=== PATIENT | male | born 1950 | race Caucasian/White ===

== ENCOUNTER 2018-03-14 08:53 | Inpatient (IN) ==
[2018-03-14] MEDS ORDERED: SODIUM CHLORIDE 0.9% 1,000 ML IV PRN (11:17)
[2018-03-14] MEDS ORDERED: FUROSEMIDE 40 MG TABLET PO PRN (11:19)
[2018-03-14] MEDS ORDERED: NITROGLYCERIN SL 0.4 MG TABLET SL PRN (11:19)
[2018-03-14] MEDS ORDERED: SODIUM CHLORIDE 0.45% 1,000 ML IV SCH (11:30)
[2018-03-14 11:45] LABS: Basophils % 0.3 % (0.0-0.8); Eosinophils # 0.2 10*3/uL (0.0-0.87); Eosinophils % 1.3 % (0.00-10.9); Hematocrit 19.4 VOL% (42.0-52.0); Immature Granulocytes % 0.7 %; Immature Granulocytes Absolute 0.09 #; Lymphocytes # 2.4 10*3/uL (1.4-4.0); Mean Corpuscular HGB Conc 30.4 GM/DL (32-36); Mean Corpuscular Hemoglobin 25 PG (27-34); Mean Corpuscular Volume 80.5 FL (87-102); Mean Platelet Volume 9.8 FL (9.6-12.0); Monocytes # 1.1 10*3/uL (0.11-0.8); Monocytes % 8.6 % (1.7-12.7); Neutrophils # 9.4 10*3/uL (1.4-7.4); Neutrophils % 71.1 % (38.7-73.9); Platelet Count 284 T/CUMM (130-400); Red Blood Count 2.41 MC/CUMM (3.8-5.5); Red Cell Distribution Width 14.5 % (9.3-17.3); White Blood Count 13.1 T/CUMM (4-12)
[2018-03-14 11:50] LABS: Hemoglobin 5.9 GM/DL (14.0-18.0)
[2018-03-14 12:01] LABS: INR 3.2
[2018-03-14 12:02] LABS: PT Patient Result 32.8 SECS
[2018-03-14 12:10] LABS: Alanine Aminotransferase 11 U/L (16-61); Albumin 3.1 G/DL (3.4-5.0); Alkaline Phosphatase 85 U/L (45-117); Aspartate Amino Transferase 9 U/L (0-37); Bilirubin,Total < 0.39 MG/DL (0.2-1.0); Blood Urea Nitrogen 23 MG/DL (7-18); Calcium 8.1 MG/DL (8.5-10.1); Glucose 141 MG/DL (74-106); Osmolality,Calculated 282.5 MOS/KG (273-304); Potassium 4.8 MMOL/L (3.5-5.1); Sodium 139 MMOL/L (136-145); Total Protein 6.7 G/DL (6.4-8.3)
[2018-03-14] MEDS ORDERED: MAGNESIUM SULF RIDER 2 GM in PREMIX 1 EACH IV PRN (13:15)
[2018-03-14] MEDS ORDERED: MAGNESIUM SULF RIDER 4 GM in PREMIX 1 EACH IV PRN (13:15)
[2018-03-14] MEDS ORDERED: metFORMIN 500 MG TABLET PO SCH (21:00)
[2018-03-14 21:34] LABS: Hematocrit 26.7 VOL% (42.0-52.0); Hemoglobin 8.4 GM/DL (14.0-18.0)
[2018-03-14] MEDS: ESCITALOPRAM 10 MG TABLET PO SCH (21:56)
[2018-03-14] MEDS: ROSUVASTATIN 20 MG TABLET PO SCH (21:56)
[2018-03-14] MEDS: levETIRAcetam 500 MG TABLET PO SCH (21:56)
[2018-03-14] MEDS: SOTALOL 80 MG TABLET PO SCH (21:56)
[2018-03-14] MEDS: ISOSORBIDE DINITRATE 20 MG TABLET PO SCH (21:56)
[2018-03-14] MEDS: ZALEPLON 5 MG CAPSULE PO SCH (21:56)
[2018-03-15 04:44] LABS: Basophils # 0.1 10*3/uL (0.0-0.2); Basophils % 0.6 % (0.0-0.8); Eosinophils # 0.2 10*3/uL (0.0-0.87); Eosinophils % 1.8 % (0.00-10.9); Immature Granulocytes % 0.4 %; Immature Granulocytes Absolute 0.06 #; Lymphocytes # 2.1 10*3/uL (1.4-4.0); Lymphocytes % 15.8 % (21.2-54.2); Mean Corpuscular HGB Conc 30.8 GM/DL (32-36); Mean Corpuscular Hemoglobin 26 PG (27-34); Mean Corpuscular Volume 82.8 FL (87-102); Mean Platelet Volume 9.7 FL (9.6-12.0); Monocytes # 1.2 10*3/uL (0.11-0.8); Monocytes % 8.9 % (1.7-12.7); Neutrophils # 9.8 10*3/uL (1.4-7.4); Neutrophils % 72.5 % (38.7-73.9); Platelet Count 251 T/CUMM (130-400); Red Blood Count 3.14 MC/CUMM (3.8-5.5); Red Cell Distribution Width 14.1 % (9.3-17.3); White Blood Count 13.5 T/CUMM (4-12)
[2018-03-15 05:00] LABS: INR 2.8
[2018-03-15 05:01] LABS: PT Patient Result 28.8 SECS
[2018-03-15 05:28] LABS: Bilirubin,Total 0.9 MG/DL (0.2-1.0); Calcium 8.2 MG/DL (8.5-10.1); Osmolality,Calculated 283.3 MOS/KG (273-304); Potassium 4.5 MMOL/L (3.5-5.1); Total Protein 6.6 G/DL (6.4-8.3)
[2018-03-15] MEDS: POTASSIUM CHLORIDE 20 MEQ TABLET PO SCH (08:52)
[2018-03-15] MEDS: DILTIAZEM CD 180 MG CAPSULE PO SCH (08:52)
[2018-03-15] MEDS: ISOSORBIDE DINITRATE 20 MG TABLET PO SCH ×2 (08:53→21:21)
[2018-03-15] MEDS: SOTALOL 80 MG TABLET PO SCH ×2 (08:54→21:21)
[2018-03-15] MEDS: CHOLECALCIFEROL 1,000 UNIT TABLET PO SCH (08:55)
[2018-03-15] MEDS: levETIRAcetam 500 MG TABLET PO SCH ×2 (08:56→21:20)
[2018-03-15] MEDS: ASCORBIC ACID 500 MG TABLET PO SCH (08:56)
[2018-03-15] MEDS: LISINOPRIL 10 MG TABLET PO SCH (08:56)
[2018-03-15] MEDS ORDERED: FUROSEMIDE 20 MG/2 ML VIAL IV PRN (11:47)
[2018-03-15] MEDS ORDERED: SODIUM CHLORIDE 0.9% 1,000 ML IV PRN ×2 (11:47→13:07)
[2018-03-15] MEDS: INSULIN LISPRO 100 UNIT/ML SUBCUT SCH ×3 (12:06→22:58)
[2018-03-15] MEDS ORDERED: DIGOXIN 0.25 MG TABLET PO SCH (13:00)
[2018-03-15] MEDS: GLIMEPIRIDE 2 MG TABLET PO SCH (13:21)
[2018-03-15] MEDS: ZALEPLON 5 MG CAPSULE PO SCH (21:20)
[2018-03-15] MEDS: ROSUVASTATIN 20 MG TABLET PO SCH (21:20)
[2018-03-15] MEDS: ESCITALOPRAM 10 MG TABLET PO SCH (21:22)
[2018-03-16 04:15] LABS: Basophils # 0.1 10*3/uL (0.0-0.2); Basophils % 0.6 % (0.0-0.8); Eosinophils # 0.3 10*3/uL (0.0-0.87); Eosinophils % 2.1 % (0.00-10.9); Hematocrit 31.2 VOL% (42.0-52.0); Hemoglobin 9.6 GM/DL (14.0-18.0); Immature Granulocytes % 0.4 %; Immature Granulocytes Absolute 0.05 #; Lymphocytes # 2.1 10*3/uL (1.4-4.0); Lymphocytes % 18.2 % (21.2-54.2); Mean Corpuscular HGB Conc 30.8 GM/DL (32-36); Mean Corpuscular Hemoglobin 25 PG (27-34); Mean Corpuscular Volume 82.3 FL (87-102); Mean Platelet Volume 10.1 FL (9.6-12.0); Monocytes # 1.2 10*3/uL (0.11-0.8); Neutrophils # 8.1 10*3/uL (1.4-7.4); Neutrophils % 68.7 % (38.7-73.9); Platelet Count 268 T/CUMM (130-400); Red Blood Count 3.79 MC/CUMM (3.8-5.5); Red Cell Distribution Width 14.7 % (9.3-17.3); White Blood Count 11.7 T/CUMM (4-12)
[2018-03-16 04:30] LABS: INR 2.4
[2018-03-16 04:32] LABS: PT Patient Result 24.4 SECS
[2018-03-16 04:41] LABS: Bilirubin,Total 0.8 MG/DL (0.2-1.0); Calcium 8.2 MG/DL (8.5-10.1); Osmolality,Calculated 283.3 MOS/KG (273-304); Potassium 4.3 MMOL/L (3.5-5.1); Total Protein 6.7 G/DL (6.4-8.3)
[2018-03-16] MEDS ORDERED: DIGOXIN 0.25 MG TABLET PO SCH (08:00)
[2018-03-16 08:14] VITALS: BP 136/70
[2018-03-16] MEDS: INSULIN LISPRO 100 UNIT/ML SUBCUT SCH (08:31)
[2018-03-16] MEDS: ASCORBIC ACID 500 MG TABLET PO SCH (08:55)
[2018-03-16] MEDS: ISOSORBIDE DINITRATE 20 MG TABLET PO SCH (08:55)
[2018-03-16] MEDS: DILTIAZEM CD 180 MG CAPSULE PO SCH (08:55)
[2018-03-16] MEDS: LISINOPRIL 10 MG TABLET PO SCH (08:55)
[2018-03-16] MEDS: levETIRAcetam 500 MG TABLET PO SCH (08:55)
[2018-03-16] MEDS: SOTALOL 80 MG TABLET PO SCH (08:55)
[2018-03-16] MEDS: GLIMEPIRIDE 2 MG TABLET PO SCH (08:56)
[2018-03-16] MEDS: POTASSIUM CHLORIDE 20 MEQ TABLET PO SCH (08:56)
[2018-03-16] MEDS: CHOLECALCIFEROL 1,000 UNIT TABLET PO SCH (08:56)
[2018-03-17] MEDS ORDERED: DIGOXIN 0.25 MG TABLET PO SCH (08:00)
== END 2018-03-16 10:59 | disposition home or self-care, planned readmission (81) | DRG 687 ==
LOC: N.2W 10:21 → N.TELES 15:07
PROVIDERS: ADMIT Internal Medicine; ATTEND Internal Medicine

== ENCOUNTER 2018-03-21 07:00 | Inpatient (IN) ==
[2018-03-21] MEDS ORDERED: LACTULOSE 20 GM/30 ML UDCUP PO PRN (12:21)
[2018-03-21] MEDS ORDERED: ONDANSETRON 4 MG/2 ML VIAL IV PRN (12:21)
[2018-03-21] MEDS ORDERED: ACETAMINOPHEN 325 MG TABLET PO PRN (12:21)
[2018-03-21] MEDS ORDERED: DOCUSATE SODIUM 100 MG CAPSULE PO PRN (12:21)
[2018-03-21 13:31] LABS: Basophils # 0.1 10*3/uL (0.0-0.2); Basophils % 0.6 % (0.0-0.8); Eosinophils # 0.5 10*3/uL (0.0-0.87); Eosinophils % 2.8 % (0.00-10.9); Hematocrit 34.6 VOL% (42.0-52.0); Hemoglobin 10.2 GM/DL (14.0-18.0); Immature Granulocytes % 0.5 %; Immature Granulocytes Absolute 0.09 #; Lymphocytes # 2.3 10*3/uL (1.4-4.0); Lymphocytes % 13.9 % (21.2-54.2); Mean Corpuscular HGB Conc 29.5 GM/DL (32-36); Mean Corpuscular Hemoglobin 25 PG (27-34); Mean Corpuscular Volume 84.8 FL (87-102); Mean Platelet Volume 9.6 FL (9.6-12.0); Monocytes # 1.2 10*3/uL (0.11-0.8); Neutrophils # 12.5 10*3/uL (1.4-7.4); Neutrophils % 75.2 % (38.7-73.9); Platelet Count 318 T/CUMM (130-400); Red Blood Count 4.08 MC/CUMM (3.8-5.5); Red Cell Distribution Width 14.8 % (9.3-17.3); White Blood Count 16.6 T/CUMM (4-12)
[2018-03-21 14:03] LABS: Albumin 3.4 G/DL (3.4-5.0); Bilirubin,Total 0.4 MG/DL (0.2-1.0); Calcium 8.9 MG/DL (8.5-10.1); Osmolality,Calculated 280.4 MOS/KG (273-304); Potassium 4.1 MMOL/L (3.5-5.1); Thyroid Stimulating Hormone 2.22 uIU/ml (0.358-3.74); Total Protein 7.6 G/DL (6.4-8.3)
[2018-03-21] MEDS: PANTOPRAZOLE 40 MG TABLET PO SCH (14:17)
[2018-03-21] MEDS: SODIUM CHLORIDE 0.9% 1,000 ML IV SCH (14:17)
[2018-03-21] MEDS ORDERED: FUROSEMIDE 40 MG TABLET PO PRN (16:09)
[2018-03-21 16:46] LABS: Apearance,Urine CLOUDY (Clear); Bilirubin,Urine Negative (Negative); Blood, Urine Moderate mg/dL (Negative); Glucose,Urine (UA) Negative (Negative); Ketones,Urine 5 mg/dL (Negative); Nitrite,Urine Negative (Negative); Protein,Urine 100 MG/DL; RBC,Urine 23912 /HPF (0-4); Squamous Epithelial Cell,Urine Occasional /HPF (0-10); Urine Specific Gravity 1.012 (1.001-1.035); Urine Urobilinogen < 2.0 EU/DL (0.2-1.0)
[2018-03-21 16:53] LABS: Urine Color Brown (Yellow); WBC,Urine 2 /HPF (0-6)
[2018-03-21] MEDS: cefTRIAXone 1,000 MG in SYRINGE 1 EACH IV SCH (17:54)
[2018-03-21] MEDS: SOTALOL 80 MG TABLET PO SCH (20:49)
[2018-03-21] MEDS: levETIRAcetam 500 MG TABLET PO SCH (20:49)
[2018-03-21] MEDS: ESCITALOPRAM 10 MG TABLET PO SCH (20:49)
[2018-03-21] MEDS: ISOSORBIDE DINITRATE 20 MG TABLET PO SCH (20:49)
[2018-03-21] MEDS: ROSUVASTATIN 20 MG TABLET PO SCH (20:49)
[2018-03-22 04:55] LABS: Basophils # 0.1 10*3/uL (0.0-0.2); Basophils % 0.8 % (0.0-0.8); Eosinophils # 0.4 10*3/uL (0.0-0.87); Eosinophils % 2.9 % (0.00-10.9); Hematocrit 31.3 VOL% (42.0-52.0); Hemoglobin 9.4 GM/DL (14.0-18.0); Immature Granulocytes % 0.7 %; Immature Granulocytes Absolute 0.09 #; Lymphocytes # 2.4 10*3/uL (1.4-4.0); Lymphocytes % 18.9 % (21.2-54.2); Mean Corpuscular Hemoglobin 26 PG (27-34); Mean Corpuscular Volume 84.8 FL (87-102); Mean Platelet Volume 9.6 FL (9.6-12.0); Monocytes % 8.3 % (1.7-12.7); Neutrophils # 8.6 10*3/uL (1.4-7.4); Neutrophils % 68.4 % (38.7-73.9); Platelet Count 283 T/CUMM (130-400); Red Blood Count 3.69 MC/CUMM (3.8-5.5); Red Cell Distribution Width 14.8 % (9.3-17.3); White Blood Count 12.5 T/CUMM (4-12)
[2018-03-22 05:29] LABS: Calcium 8.4 MG/DL (8.5-10.1); Osmolality,Calculated 287.7 MOS/KG (273-304); Potassium 4.8 MMOL/L (3.5-5.1); Risk Ratio 3.65; VLDL CHOLESTEROL 25.8 MG/DL
[2018-03-22] MEDS: SODIUM CHLORIDE 0.9% 1,000 ML IV SCH (07:45)
[2018-03-22] MEDS: ISOSORBIDE DINITRATE 20 MG TABLET PO SCH ×2 (09:00→21:52)
[2018-03-22] MEDS: DILTIAZEM CD 180 MG CAPSULE PO SCH (09:01)
[2018-03-22] MEDS: SOTALOL 80 MG TABLET PO SCH ×2 (09:01→21:53)
[2018-03-22] MEDS: GLIMEPIRIDE 2 MG TABLET PO SCH (09:01)
[2018-03-22] MEDS: PANTOPRAZOLE 40 MG TABLET PO SCH (09:01)
[2018-03-22] MEDS: DIGOXIN 0.25 MG TABLET PO SCH (09:01)
[2018-03-22] MEDS: LISINOPRIL 10 MG TABLET PO SCH (09:02)
[2018-03-22] MEDS: levETIRAcetam 500 MG TABLET PO SCH ×2 (09:02→21:53)
[2018-03-22] MEDS ORDERED: diphenhydrAMINE 50 MG/1 ML VIAL IV PRN (15:29)
[2018-03-22] MEDS ORDERED: SODIUM CHLORIDE 0.9% 1,000 ML IV PRN (15:29)
[2018-03-22] MEDS: ESCITALOPRAM 10 MG TABLET PO SCH (21:53)
[2018-03-22] MEDS: cefTRIAXone 1,000 MG in SYRINGE 1 EACH IV SCH (21:53)
[2018-03-22] MEDS: ROSUVASTATIN 20 MG TABLET PO SCH (21:53)
[2018-03-22] MEDS: ZOLPIDEM 5 MG TABLET PO PRN (21:53)
[2018-03-22 21:55] LABS: PT Patient Result 10.9 SECS; Partial Thromboplastin Time 27.1 SECS (0-40)
[2018-03-23 04:55] LABS: Basophils # 0.1 10*3/uL (0.0-0.2); Basophils % 0.7 % (0.0-0.8); Eosinophils # 0.4 10*3/uL (0.0-0.87); Eosinophils % 2.9 % (0.00-10.9); Hemoglobin 10.5 GM/DL (14.0-18.0); Immature Granulocytes % 0.7 %; Immature Granulocytes Absolute 0.09 #; Lymphocytes # 2.2 10*3/uL (1.4-4.0); Lymphocytes % 17.5 % (21.2-54.2); Mean Corpuscular HGB Conc 30.9 GM/DL (32-36); Mean Corpuscular Hemoglobin 26 PG (27-34); Mean Corpuscular Volume 84.8 FL (87-102); Mean Platelet Volume 9.5 FL (9.6-12.0); Monocytes # 0.9 10*3/uL (0.11-0.8); Monocytes % 7.6 % (1.7-12.7); Neutrophils # 8.7 10*3/uL (1.4-7.4); Neutrophils % 70.6 % (38.7-73.9); Platelet Count 268 T/CUMM (130-400); Red Blood Count 4.01 MC/CUMM (3.8-5.5); Red Cell Distribution Width 14.6 % (9.3-17.3); White Blood Count 12.3 T/CUMM (4-12)
[2018-03-23 05:31] LABS: Albumin 3.2 G/DL (3.4-5.0); Bilirubin,Total 1.3 MG/DL (0.2-1.0); Calcium 8.8 MG/DL (8.5-10.1); Osmolality,Calculated 283.1 MOS/KG (273-304); Potassium 4.1 MMOL/L (3.5-5.1); Total Protein 7.1 G/DL (6.4-8.3)
[2018-03-23] MEDS: SOTALOL 80 MG TABLET PO SCH ×3 (06:34→20:18)
[2018-03-23] MEDS: levETIRAcetam 500 MG TABLET PO SCH ×3 (06:34→20:18)
[2018-03-23] MEDS: LISINOPRIL 10 MG TABLET PO SCH ×2 (06:35→13:56)
[2018-03-23] MEDS: DILTIAZEM CD 180 MG CAPSULE PO SCH ×2 (06:35→13:56)
[2018-03-23] MEDS: PANTOPRAZOLE 40 MG TABLET PO SCH ×2 (06:36→13:57)
[2018-03-23] MEDS: ISOSORBIDE DINITRATE 20 MG TABLET PO SCH ×3 (06:36→20:19)
[2018-03-23] MEDS ORDERED: ETOMIDATE 40 MG/20 ML VIAL IV ONE (06:41)
[2018-03-23] MEDS ORDERED: PHENYLEPHRINE DRIP 20 MG/250 ML PREMIX IV ONE (06:41)
[2018-03-23] MEDS ORDERED: HEPARIN/NACL 0.9% 2 UNITS/ML 500 ML IV ONE (06:41)
[2018-03-23] MEDS ORDERED: cefTRIAXone 1,000 MG VIAL ONE (08:30)
[2018-03-23] MEDS ORDERED: DEXAMETHASONE 10 MG/1 ML VIAL ONE (08:30)
[2018-03-23] MEDS ORDERED: BUPIVACAINE MPF 0.25% /EPI 30 ML VIAL ONE (10:59)
[2018-03-23 13:34] LABS: Basophils # 0.1 10*3/uL (0.0-0.2); Basophils % 0.5 % (0.0-0.8); Eosinophils # 0.1 10*3/uL (0.0-0.87); Eosinophils % 0.6 % (0.00-10.9); Hematocrit 34.2 VOL% (42.0-52.0); Hemoglobin 10.3 GM/DL (14.0-18.0); Immature Granulocytes % 0.6 %; Immature Granulocytes Absolute 0.15 #; Lymphocytes # 1.3 10*3/uL (1.4-4.0); Lymphocytes % 5.4 % (21.2-54.2); Mean Corpuscular HGB Conc 30.1 GM/DL (32-36); Mean Corpuscular Hemoglobin 26 PG (27-34); Mean Corpuscular Volume 86.8 FL (87-102); Mean Platelet Volume 9.3 FL (9.6-12.0); Monocytes # 1.5 10*3/uL (0.11-0.8); Monocytes % 6.3 % (1.7-12.7); Neutrophils # 20.2 10*3/uL (1.4-7.4); Neutrophils % 86.6 % (38.7-73.9); Platelet Count 289 T/CUMM (130-400); Red Blood Count 3.94 MC/CUMM (3.8-5.5); Red Cell Distribution Width 14.7 % (9.3-17.3); White Blood Count 23.3 T/CUMM (4-12)
[2018-03-23] MEDS ORDERED: SEVOFLURANE 1 UNIT/15 MINUTE INH ONE (13:39)
[2018-03-23] MEDS ORDERED: MIDAZOLAM 2 MG/2 ML VIAL ONE (13:40)
[2018-03-23] MEDS ORDERED: GLYCOPYRROLATE 0.4 MG/2 ML VIAL ONE (13:40)
[2018-03-23] MEDS ORDERED: ONDANSETRON 4 MG/2 ML VIAL ONE (13:40)
[2018-03-23] MEDS ORDERED: SODIUM CHLORIDE 0.9% 1,000 ML IV ONE (13:41)
[2018-03-23] MEDS ORDERED: LACTATED RINGERS 1,000 ML IV ONE (13:41)
[2018-03-23] MEDS ORDERED: NEOSTIGMINE 10 MG/10 ML VIAL ONE (13:41)
[2018-03-23] MEDS ORDERED: ROCURONIUM 100 MG/10 ML VIAL IV ONE (13:41)
[2018-03-23 13:55] LABS: Apearance,Urine CLOUDY (Clear); Bilirubin,Urine Negative (Negative); Blood, Urine Moderate mg/dL (Negative); Glucose,Urine (UA) Negative (Negative); Ketones,Urine Negative (Negative); Nitrite,Urine Negative (Negative); Protein,Urine 100 MG/DL; RBC,Urine 6185 /HPF (0-4); Urine Color Red (Yellow); Urine Specific Gravity 1.008 (1.001-1.035); Urine Urobilinogen < 2.0 EU/DL (0.2-1.0); WBC,Urine 120 /HPF (0-6)
[2018-03-23] MEDS: GLIMEPIRIDE 2 MG TABLET PO SCH (13:55)
[2018-03-23 14:03] LABS: Calcium 7.7 MG/DL (8.5-10.1); Osmolality,Calculated 285.1 MOS/KG (273-304); Potassium 5.6 MMOL/L (3.5-5.1)
[2018-03-23 15:59] LABS: Eosinophils 1 % (0-10); Hypochromasia 1+; Lymphocytes 6 % (20-55); Microcytosis 1+; Platelet Estimate Adequate; Segmented Neutrophils 92 % (50-85); Total Cells Counted 100
[2018-03-23] MEDS: SODIUM CHLORIDE 0.9% 1,000 ML IV SCH (16:20)
[2018-03-23] MEDS: cefTRIAXone 1,000 MG in SYRINGE 1 EACH IV SCH (17:25)
[2018-03-23] MEDS: ROSUVASTATIN 20 MG TABLET PO SCH (20:18)
[2018-03-23] MEDS: ESCITALOPRAM 10 MG TABLET PO SCH (20:18)
[2018-03-23] MEDS: cloNIDine 0.1 MG TABLET PO PRN (20:19)
[2018-03-24] MEDS: ZOLPIDEM 5 MG TABLET PO PRN ×2 (02:19→23:01)
[2018-03-24 03:35] LABS: Basophils # 0.1 10*3/uL (0.0-0.2); Basophils % 0.4 % (0.0-0.8); Eosinophils % 0.1 % (0.00-10.9); Hematocrit 32.7 VOL% (42.0-52.0); Hemoglobin 9.8 GM/DL (14.0-18.0); Immature Granulocytes Absolute 0.25 #; Lymphocytes # 1.5 10*3/uL (1.4-4.0); Mean Corpuscular Hemoglobin 26 PG (27-34); Mean Corpuscular Volume 86.3 FL (87-102); Mean Platelet Volume 10.9 FL (9.6-12.0); Monocytes # 1.7 10*3/uL (0.11-0.8); Monocytes % 6.6 % (1.7-12.7); Neutrophils % 85.9 % (38.7-73.9); Platelet Count 149 T/CUMM (130-400); Red Blood Count 3.79 MC/CUMM (3.8-5.5); White Blood Count 25.6 T/CUMM (4-12)
[2018-03-24 04:00] LABS: Calcium 7.8 MG/DL (8.5-10.1); Potassium 4.7 MMOL/L (3.5-5.1)
[2018-03-24 04:12] LABS: Band Neutrophils 4 % (0-10); Lymphocytes 10 % (20-55); Segmented Neutrophils 82 % (50-85); Total Cells Counted 100
[2018-03-24 04:13] LABS: Platelet Estimate Normal
[2018-03-24] MEDS: SODIUM CHLORIDE 0.9% 1,000 ML IV SCH ×5 (04:26→22:13)
[2018-03-24] MEDS: levETIRAcetam 500 MG TABLET PO SCH ×2 (08:37→22:02)
[2018-03-24] MEDS: SOTALOL 80 MG TABLET PO SCH ×2 (08:37→22:01)
[2018-03-24] MEDS: GLIMEPIRIDE 2 MG TABLET PO SCH (08:37)
[2018-03-24] MEDS: DILTIAZEM CD 180 MG CAPSULE PO SCH (08:37)
[2018-03-24] MEDS: ISOSORBIDE DINITRATE 20 MG TABLET PO SCH ×2 (08:38→22:02)
[2018-03-24] MEDS: PANTOPRAZOLE 40 MG TABLET PO SCH (08:38)
[2018-03-24] MEDS: DIGOXIN 0.25 MG TABLET PO SCH (08:38)
[2018-03-24] MEDS: PIPERACILLIN/TAZOBACTAM 3,375 MG in SODIUM CHLORIDE 0.9% 100 ML IV SCH ×2 (08:45→17:00)
[2018-03-24] MEDS ORDERED: MAGNESIUM SULF RIDER 4 GM in PREMIX 1 EACH IV PRN (08:58)
[2018-03-24] MEDS: MAGNESIUM SULF RIDER 2 GM in PREMIX 1 EACH IV PRN (09:47)
[2018-03-24] MEDS ORDERED: CALCIUM GLUCONATE 2,000 MG in SODIUM CHLORIDE 0.9% 100 ML IV ONE (10:00)
[2018-03-24] MEDS: cloNIDine 0.1 MG TABLET PO PRN (10:40)
[2018-03-24] MEDS: ACETAMINOPHEN 325 MG TABLET PO SCH ×3 (11:21→23:01)
[2018-03-24] MEDS: ESCITALOPRAM 10 MG TABLET PO SCH (22:02)
[2018-03-24] MEDS: ROSUVASTATIN 20 MG TABLET PO SCH (22:03)
[2018-03-24] MEDS ORDERED: HEPARIN/NACL 0.9% 2 UNITS/ML 500 ML IV ONE (22:25)
[2018-03-25] MEDS ORDERED: SODIUM CHLORIDE 0.9% 500 ML IV ONE (01:25)
[2018-03-25] MEDS: PIPERACILLIN/TAZOBACTAM 3,375 MG in SODIUM CHLORIDE 0.9% 100 ML IV SCH ×3 (01:29→17:15)
[2018-03-25] MEDS: SODIUM CHLORIDE 0.9% 1,000 ML IV SCH ×5 (01:30→20:16)
[2018-03-25] MEDS ORDERED: PHENYLEPHRINE DRIP 40 MG/250 ML PREMIX IV PRN (02:08)
[2018-03-25 05:03] LABS: Basophils # 0.1 10*3/uL (0.0-0.2); Basophils % 0.4 % (0.0-0.8); Eosinophils # 0.2 10*3/uL (0.0-0.87); Hemoglobin 8.9 GM/DL (14.0-18.0); Immature Granulocytes % 0.9 %; Immature Granulocytes Absolute 0.16 #; Lymphocytes # 1.5 10*3/uL (1.4-4.0); Lymphocytes % 8.2 % (21.2-54.2); Mean Corpuscular HGB Conc 29.7 GM/DL (32-36); Mean Corpuscular Hemoglobin 26 PG (27-34); Mean Platelet Volume 9.9 FL (9.6-12.0); Monocytes # 1.3 10*3/uL (0.11-0.8); Monocytes % 6.8 % (1.7-12.7); Neutrophils # 15.5 10*3/uL (1.4-7.4); Neutrophils % 82.7 % (38.7-73.9); Platelet Count 223 T/CUMM (130-400); Red Blood Count 3.45 MC/CUMM (3.8-5.5); Red Cell Distribution Width 15.2 % (9.3-17.3); White Blood Count 18.7 T/CUMM (4-12)
[2018-03-25 05:10] LABS: Calcium 7.9 MG/DL (8.5-10.1); Osmolality,Calculated 290.8 MOS/KG (273-304); Potassium 4.3 MMOL/L (3.5-5.1)
[2018-03-25] MEDS: ACETAMINOPHEN 325 MG TABLET PO SCH ×4 (05:57→23:29)
[2018-03-25] MEDS ORDERED: SODIUM CHLORIDE 0.9% 1,000 ML IV PRN ×2 (08:13→09:41)
[2018-03-25] MEDS: ISOSORBIDE DINITRATE 20 MG TABLET PO SCH ×2 (10:08→20:56)
[2018-03-25] MEDS: PANTOPRAZOLE 40 MG TABLET PO SCH (10:10)
[2018-03-25] MEDS: SOTALOL 80 MG TABLET PO SCH ×2 (10:11→20:56)
[2018-03-25] MEDS: DILTIAZEM CD 180 MG CAPSULE PO SCH (10:11)
[2018-03-25] MEDS: levETIRAcetam 500 MG TABLET PO SCH ×2 (10:15→20:56)
[2018-03-25] MEDS: ALBUTEROL/IPRATROPIUM 3 ML NEB RESP TX PRN ×2 (10:33→15:34)
[2018-03-25] MEDS ORDERED: FUROSEMIDE 40 MG/4 ML VIAL IV ONE (16:14)
[2018-03-25] MEDS: ESCITALOPRAM 10 MG TABLET PO SCH (20:57)
[2018-03-25] MEDS: ROSUVASTATIN 20 MG TABLET PO SCH (20:57)
[2018-03-25] MEDS: ZOLPIDEM 5 MG TABLET PO PRN (23:28)
[2018-03-26] MEDS: SODIUM CHLORIDE 0.9% 1,000 ML IV SCH ×5 (01:08→21:30)
[2018-03-26] MEDS: PIPERACILLIN/TAZOBACTAM 3,375 MG in SODIUM CHLORIDE 0.9% 100 ML IV SCH ×3 (01:14→16:37)
[2018-03-26] MEDS: ALBUTEROL/IPRATROPIUM 3 ML NEB RESP TX PRN (01:26)
[2018-03-26 04:50] LABS: Basophils # 0.1 10*3/uL (0.0-0.2); Basophils % 0.6 % (0.0-0.8); Eosinophils # 0.3 10*3/uL (0.0-0.87); Eosinophils % 2.2 % (0.00-10.9); Hematocrit 34.6 VOL% (42.0-52.0); Hemoglobin 10.7 GM/DL (14.0-18.0); Immature Granulocytes % 0.7 %; Lymphocytes # 1.4 10*3/uL (1.4-4.0); Lymphocytes % 10.3 % (21.2-54.2); Mean Corpuscular HGB Conc 30.9 GM/DL (32-36); Mean Corpuscular Hemoglobin 26 PG (27-34); Mean Platelet Volume 10.1 FL (9.6-12.0); Neutrophils # 11.1 10*3/uL (1.4-7.4); Neutrophils % 79.2 % (38.7-73.9); Platelet Count 207 T/CUMM (130-400); Red Blood Count 4.07 MC/CUMM (3.8-5.5); Red Cell Distribution Width 14.7 % (9.3-17.3)
[2018-03-26] MEDS: ACETAMINOPHEN 325 MG TABLET PO SCH ×4 (05:43→22:02)
[2018-03-26] MEDS: DILTIAZEM CD 180 MG CAPSULE PO SCH (09:39)
[2018-03-26] MEDS: PANTOPRAZOLE 40 MG TABLET PO SCH (09:40)
[2018-03-26] MEDS: levETIRAcetam 500 MG TABLET PO SCH ×2 (09:40→22:02)
[2018-03-26] MEDS: ISOSORBIDE DINITRATE 20 MG TABLET PO SCH ×2 (09:42→22:02)
[2018-03-26] MEDS: SOTALOL 80 MG TABLET PO SCH ×2 (09:42→22:04)
[2018-03-26] MEDS: FUROSEMIDE 40 MG TABLET PO SCH (16:35)
[2018-03-26] MEDS: ESCITALOPRAM 10 MG TABLET PO SCH (22:03)
[2018-03-26] MEDS: ROSUVASTATIN 20 MG TABLET PO SCH (22:03)
[2018-03-27] MEDS: PIPERACILLIN/TAZOBACTAM 3,375 MG in SODIUM CHLORIDE 0.9% 100 ML IV SCH ×3 (00:41→17:33)
[2018-03-27 04:52] LABS: Basophils # 0.1 10*3/uL (0.0-0.2); Basophils % 0.6 % (0.0-0.8); Eosinophils # 0.4 10*3/uL (0.0-0.87); Eosinophils % 3.6 % (0.00-10.9); Hematocrit 35.7 VOL% (42.0-52.0); Immature Granulocytes % 0.6 %; Immature Granulocytes Absolute 0.07 #; Lymphocytes # 1.3 10*3/uL (1.4-4.0); Lymphocytes % 11.6 % (21.2-54.2); Mean Corpuscular HGB Conc 30.8 GM/DL (32-36); Mean Corpuscular Hemoglobin 26 PG (27-34); Mean Platelet Volume 9.9 FL (9.6-12.0); Monocytes # 0.8 10*3/uL (0.11-0.8); Monocytes % 6.7 % (1.7-12.7); Neutrophils # 8.8 10*3/uL (1.4-7.4); Neutrophils % 76.9 % (38.7-73.9); Platelet Count 235 T/CUMM (130-400); Red Blood Count 4.25 MC/CUMM (3.8-5.5); Red Cell Distribution Width 14.6 % (9.3-17.3); White Blood Count 11.5 T/CUMM (4-12)
[2018-03-27 05:18] LABS: Calcium 7.7 MG/DL (8.5-10.1); Osmolality,Calculated 281.1 MOS/KG (273-304); Potassium 3.7 MMOL/L (3.5-5.1)
[2018-03-27] MEDS: SODIUM CHLORIDE 0.9% 1,000 ML IV SCH (05:52)
[2018-03-27] MEDS: ACETAMINOPHEN 325 MG TABLET PO SCH ×4 (05:53→23:45)
[2018-03-27] MEDS: DIGOXIN 0.25 MG TABLET PO SCH (08:43)
[2018-03-27] MEDS: FUROSEMIDE 40 MG TABLET PO SCH (08:43)
[2018-03-27] MEDS: PANTOPRAZOLE 40 MG TABLET PO SCH (08:43)
[2018-03-27] MEDS: ISOSORBIDE DINITRATE 20 MG TABLET PO SCH ×2 (08:43→21:48)
[2018-03-27] MEDS: ASPIRIN EC 81 MG TABLET PO SCH (08:44)
[2018-03-27] MEDS: SOTALOL 80 MG TABLET PO SCH ×2 (08:44→21:48)
[2018-03-27] MEDS: levETIRAcetam 500 MG TABLET PO SCH ×2 (08:44→21:49)
[2018-03-27] MEDS: DILTIAZEM CD 180 MG CAPSULE PO SCH (08:44)
[2018-03-27] MEDS ORDERED: DILTIAZEM CD 120 MG CAPSULE PO ONE (10:51)
[2018-03-27] MEDS ORDERED: POTASSIUM CHLORIDE 20 MEQ TABLET PO ONE (10:53)
[2018-03-27] MEDS: ESCITALOPRAM 10 MG TABLET PO SCH (21:48)
[2018-03-27] MEDS: ROSUVASTATIN 20 MG TABLET PO SCH (21:49)
[2018-03-28] MEDS: ACETAMINOPHEN 325 MG TABLET PO SCH ×3 (06:04→17:53)
[2018-03-28 06:25] LABS: Basophils # 0.1 10*3/uL (0.0-0.2); Basophils % 0.8 % (0.0-0.8); Eosinophils # 0.5 10*3/uL (0.0-0.87); Eosinophils % 4.4 % (0.00-10.9); Hematocrit 37.8 VOL% (42.0-52.0); Immature Granulocytes % 0.8 %; Immature Granulocytes Absolute 0.08 #; Lymphocytes # 1.6 10*3/uL (1.4-4.0); Lymphocytes % 15.3 % (21.2-54.2); Mean Corpuscular HGB Conc 31.7 GM/DL (32-36); Mean Corpuscular Hemoglobin 26 PG (27-34); Mean Corpuscular Volume 83.1 FL (87-102); Mean Platelet Volume 9.7 FL (9.6-12.0); Monocytes # 0.8 10*3/uL (0.11-0.8); Monocytes % 7.7 % (1.7-12.7); Neutrophils # 7.2 10*3/uL (1.4-7.4); Platelet Count 257 T/CUMM (130-400); Red Blood Count 4.55 MC/CUMM (3.8-5.5); Red Cell Distribution Width 14.1 % (9.3-17.3); White Blood Count 10.2 T/CUMM (4-12)
[2018-03-28 06:43] LABS: Calcium 8.4 MG/DL (8.5-10.1); Osmolality,Calculated 280.1 MOS/KG (273-304); Potassium 3.3 MMOL/L (3.5-5.1)
[2018-03-28] MEDS ORDERED: POTASSIUM CHLORIDE 20 MEQ TABLET PO ONE (06:59)
[2018-03-28] MEDS ORDERED: MAGNESIUM SULF RIDER 4 GM in PREMIX 1 EACH IV PRN (06:59)
[2018-03-28] MEDS ORDERED: MAGNESIUM SULF RIDER 2 GM in PREMIX 1 EACH IV PRN (06:59)
[2018-03-28] MEDS: GLIMEPIRIDE 2 MG TABLET PO SCH (10:06)
[2018-03-28] MEDS: DILTIAZEM CD 240 MG CAPSULE PO SCH (10:06)
[2018-03-28] MEDS: levETIRAcetam 500 MG TABLET PO SCH ×2 (10:06→21:42)
[2018-03-28] MEDS: SOTALOL 80 MG TABLET PO SCH ×2 (10:06→21:42)
[2018-03-28] MEDS: PANTOPRAZOLE 40 MG TABLET PO SCH (10:06)
[2018-03-28] MEDS: ISOSORBIDE DINITRATE 20 MG TABLET PO SCH ×2 (10:06→21:42)
[2018-03-28] MEDS: FUROSEMIDE 40 MG TABLET PO SCH (10:06)
[2018-03-28] MEDS: ASPIRIN EC 81 MG TABLET PO SCH (10:06)
[2018-03-28] MEDS: MAGNESIUM SULF RIDER 2 GM in PREMIX 1 EACH IV PRN (10:07)
[2018-03-28] MEDS: ROSUVASTATIN 20 MG TABLET PO SCH (21:41)
[2018-03-28] MEDS: ESCITALOPRAM 10 MG TABLET PO SCH (21:42)
[2018-03-29] MEDS: ACETAMINOPHEN 325 MG TABLET PO SCH ×3 (00:05→11:30)
[2018-03-29 06:38] LABS: Basophils # 0.1 10*3/uL (0.0-0.2); Basophils % 0.7 % (0.0-0.8); Eosinophils # 0.5 10*3/uL (0.0-0.87); Eosinophils % 4.8 % (0.00-10.9); Hematocrit 38.9 VOL% (42.0-52.0); Hemoglobin 12.1 GM/DL (14.0-18.0); Immature Granulocytes % 0.9 %; Immature Granulocytes Absolute 0.09 #; Lymphocytes # 1.8 10*3/uL (1.4-4.0); Lymphocytes % 17.9 % (21.2-54.2); Mean Corpuscular HGB Conc 31.1 GM/DL (32-36); Mean Corpuscular Hemoglobin 26 PG (27-34); Mean Corpuscular Volume 82.8 FL (87-102); Mean Platelet Volume 9.9 FL (9.6-12.0); Monocytes # 0.8 10*3/uL (0.11-0.8); Monocytes % 7.9 % (1.7-12.7); Neutrophils # 6.7 10*3/uL (1.4-7.4); Neutrophils % 67.8 % (38.7-73.9); Platelet Count 278 T/CUMM (130-400); Red Cell Distribution Width 14.3 % (9.3-17.3); White Blood Count 9.8 T/CUMM (4-12)
[2018-03-29 07:10] LABS: Calcium 8.6 MG/DL (8.5-10.1); Osmolality,Calculated 280.1 MOS/KG (273-304); Potassium 3.1 MMOL/L (3.5-5.1)
[2018-03-29] MEDS ORDERED: POTASSIUM CHLORIDE 20 MEQ TABLET PO SCH (09:00)
[2018-03-29] MEDS: levETIRAcetam 500 MG TABLET PO SCH (10:00)
[2018-03-29] MEDS: DILTIAZEM CD 240 MG CAPSULE PO SCH (10:00)
[2018-03-29] MEDS: ASPIRIN EC 81 MG TABLET PO SCH (10:00)
[2018-03-29] MEDS: FUROSEMIDE 40 MG TABLET PO SCH (10:01)
[2018-03-29] MEDS: PANTOPRAZOLE 40 MG TABLET PO SCH (10:01)
[2018-03-29] MEDS: DIGOXIN 0.25 MG TABLET PO SCH (10:01)
[2018-03-29] MEDS: ISOSORBIDE DINITRATE 20 MG TABLET PO SCH (10:01)
[2018-03-29] MEDS: GLIMEPIRIDE 2 MG TABLET PO SCH (10:01)
[2018-03-29] MEDS: SOTALOL 80 MG TABLET PO SCH (10:01)
[2018-03-29] MEDS: POTASSIUM CHLORIDE RIDER 20 MEQ in PREMIX 1 EACH IV PRN ×2 (11:10→12:04)
[2018-03-29 15:06] VITALS: BP 140/82
== END 2018-03-29 15:10 | disposition home health service (06) | DRG 657 ==
LOC: SUATTDRO 10:34 → N.5E 10:34 → N.CC 03-23 09:10 → N.5E 03-27 16:42
PROVIDERS: ADMIT Internal Medicine; ATTEND Internal Medicine